=== PATIENT | male | born 1945 | race Caucasian/White ===

== ENCOUNTER 2016-08-18 10:27 | Emergency (ER) | payer MEDICARE, OTHER ==
[~2016-08-18] VITALS: Ht 182.9 cm; Wt 90.0 kg
[~2016-08-18 10:27] MED LIST: DOCU50SY2 PO; LEVA750T PO; LEVO50TA4 PO; METR-1 PO; OMEP20TA PO; PERC10TA27 PO; PERI8.6T PO; WARF6 PO
[2016-08-18 10:28] VITALS: BP 116/78; PULSE 84; RESP 16; TEMP 98.2; O2SAT 98
[2016-08-18] MEDS ORDERED: LEVO75TA3 PO (10:41)
[2016-08-18] MEDS ORDERED: METO25TA3 PO (10:41)
[2016-08-18] MEDS ORDERED: OMEP40CA2 PO (10:41)
[2016-08-18 10:52] VITALS: O2SAT 95
--- NOTE | 2016-08-18 10:55 | PD ---
HPI Chief Complaint: Pain: Acute or Chronic Time Seen by Provider: 10:38 Travel History International Travel<30 days: No Contact w/Intl Traveler<30days: No Traveled to known affect area: No History of Present Illness HPI This patient was sent from the [place] to rule out DVT. He has history of multiple blood clots. He was on Coumadin for a full year that ended 4 months ago. He is no longer on anticoagulation. He complains of left leg swelling for the last 4 days. No injury. No fever. No alleviating factors. Symptoms severity is moderate. PFSH Past Medical History Cancer: Yes (THROAT) Cardiovascular Problems: No Diabetes: No Endocrine: No Genitourinary: No Hepatitis: No Hiatal Hernia: No Immune Disorder: No Musculoskeletal: Yes (LOWER BACK) Neurologic: No Psychiatric: No Respiratory: No Influenza Vaccination: No ?: Not Past Surgical History Abdominal Surgery: Yes (PEG TUBE) AICD: No Body Medical Devices: RIGHT PORT, G-TUBE Cardiac Surgery: No Ear Surgery: No Endocrine Surgery: No Eye Surgery: No Genitourinary Surgery: No Joint Replacement: No Neurologic Surgery: No Oral Surgery: No Pacemaker: No Thoracic Surgery: Yes (RIGHT SIDE IMPLANTED PORT) Other Surgery: Yes (polyp removed) Social History Alcohol Use: Yes (3-4 drinks a week) Tobacco Use: No Substance Use: No Allergies-Medications (Allergen,Severity, Reaction): Coded Allergies: Bee Sting (Unverified Allergy, Severe, Anaphylaxis, 08/18/16) Reported Meds & Prescriptions Reported Meds & Active Scripts Active Reported Omeprazole 40 Mg Cap 40 Mg PO BID Metoprolol Tartrate 25 Mg Tab 25 Mg PO BID Levothyroxine (Levothyroxine Sodium) 75 Mcg Tab 75 Mcg PO DAILY Review of Systems General / Constitutional: No: Fever Eyes: No: Visual changes HENT: No: Headaches Cardiovascular: Positive: Chest Pain or Discomfort, Edema (the) Respiratory: No: Shortness of Breath Gastrointestinal: No: Abdominal Pain Genitourinary: No: Dysuria Musculoskeletal: Positive: Edema, No: Pain Skin: No Rash Neurologic: No: Weakness Psychiatric: No: Depression Endocrine: No: Polydipsia Hematologic/Lymphatic: No: Easy Bruising Physical Exam Narrative GENERAL: Well-nourished, well-developed patient in no apparent distress. SKIN: Focused skin assessment reveals no rash and nodules. Skin is Warm and dry. HEAD: Atraumatic. Normocephalic. EYES: Pupils equal and round. No scleral icterus. No injection or drainage. ENT: No nasal bleeding or discharge. Mucous membranes pink and moist. NECK: Trachea midline. No JVD. CARDIOVASCULAR: Regular rate and rhythm. No murmur appreciated. RESPIRATORY: No accessory muscle use. Clear to auscultation. Breath sounds equal bilaterally. GASTROINTESTINAL: Abdomen soft, non-tender, nondistended. Hepatic and splenic margins not palpable. MUSCULOSKELETAL: No obvious deformities. No clubbing. No cyanosis. Has some swelling of the left leg from the calf down and not on the right side. Readily reproducible chest wall tenderness at the bottom of the right rib cage in the midaxillary line and anterior axillary line NEUROLOGICAL: Awake and alert. No obvious cranial nerve deficits. Motor grossly within normal limits. Normal speech. PSYCHIATRIC: Appropriate mood and affect; insight and judgment normal. Data Data Last Documented VS Vital Signs Date Time Temp Pulse Resp B/P Pulse Ox O2 Delivery O2 Flow Rate FiO2 08/18/16 10:52 95 Room Air 08/18/16 10:28 98.2 84 16 116/78 Orders Electrocardiogram (08/18/16 10:48) Basic Metabolic Panel (Bmp) (08/18/16 10:48) Complete Blood Count With Diff (08/18/16 10:48) Prothrombin Time / Inr (Pt) (08/18/16 10:48) Act Partial Throm Time (Ptt) (08/18/16 10:48) Ecg Monitoring (08/18/16 10:48) Iv Access Insert/Monitor (08/18/16 10:48) Oximetry (08/18/16 10:48) Sodium Chloride 0.9% Flush (Ns Flush) (08/18/16 11:00) Us Leg Venous Doppler (08/18/16 ) Labs Laboratory Tests Test 08/18/16 11:00 White Blood Count 5.5 TH/MM3 Red Blood Count 4.48 MIL/MM3 Hemoglobin 15.4 GM/DL Hematocrit 43.7 % Mean Corpuscular Volume 97.5 FL Mean Corpuscular Hemoglobin 34.4 PG Mean Corpuscular Hemoglobin 35.3 % Concent Red Cell Distribution Width 14.3 % Platelet Count 205 TH/MM3 Mean Platelet Volume 7.9 FL Neutrophils (%) (Auto) 70.2 % Lymphocytes (%) (Auto) 11.8 % Monocytes (%) (Auto) 15.8 % Eosinophils (%) (Auto) 1.7 % Basophils (%) (Auto) 0.5 % Neutrophils # (Auto) 3.9 TH/MM3 Lymphocytes # (Auto) 0.7 TH/MM3 Monocytes # (Auto) 0.9 TH/MM3 Eosinophils # (Auto) 0.1 TH/MM3 Basophils # (Auto) 0.0 TH/MM3 CBC Comment DIFF FINAL Differential Comment Prothrombin Time 10.4 SEC Prothromb Time International 0.9 RATIO Ratio Activated Partial 27.6 SEC Thromboplast Time Sodium Level 131 MEQ/L Potassium Level 4.1 MEQ/L Chloride Level 96 MEQ/L Carbon Dioxide Level 26.3 MEQ/L Anion Gap 9 MEQ/L Blood Urea Nitrogen 13 MG/DL Creatinine 1.02 MG/DL Estimat Glomerular Filtration 72 ML/MIN Rate Random Glucose 92 MG/DL Calcium Level 8.7 MG/DL MDM Medical Decision Making Medical Screen Exam Complete: Yes Emergency Medical Condition: Yes Medical Record Reviewed: Yes Differential Diagnosis DVT, cellulitis, muscle injury Narrative Course I have reviewed the patient's electronic medical record. [facility] 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 Ultrasound left leg is positive for DVT I reviewed his EKG which shows sinus rhythm without ST elevation Extended cardiac monitoring reveals sinus rhythm without ectopy This right low chest wall discomfort is readily reproducible with palpation and is clearly noncardiac and also not suspicious for PE. He does not require CTA or cardiac workup for that. Patient was on Coumadin for years so is aware of the risks of blood thinners. He does not want to go for frequent lab draws however. I have written him Xarelto 15 mg twice a day to start. He is to call his primary physician and get follow-up next week. Diagnosis Primary Impression: Deep vein thrombosis (DVT) of left lower extremity Qualified Code: I82.432 - Acute deep vein thrombosis (DVT) of popliteal vein of left lower extremity Additional Impression: Musculoskeletal chest pain Additional Instructions: The patient was advised to follow up with their physician and return if they worsen. Med/Other Pt SpecificInfo: Prescription(s) given Scripts Rivaroxaban (Xarelto)15 Mg Tab15 Mg PO Q12HR #20 TAB Ref 0 Prov:Kj Santos MD 08/18/16 Disposition: 01 DISCHARGE HOME Condition: Stable Kj Santos MD Aug 18, 2016 10:55
[2016-08-18] MEDS ORDERED: SODIUM CHLORIDE 0.9% FLUSH 10 ML FLUSH IVF PRN (11:00)
[2016-08-18 11:07] LABS: AUTOMATED NEUTROPHIL # 3.9 TH/MM3 (1.8-7.7); BASOPHIL % 0.5 % (0.0-2.0); EOSINOPHIL # 0.1 TH/MM3 (0-0.4); EOSINOPHIL % 1.7 % (0.0-4.0); HEMATOCRIT 43.7 % (39.0-51.0); HEMO FLAGS DIFF FINAL; LYMPH % 11.8 % (9.0-44.0); LYMPHOCYTE # 0.7 TH/MM3 (1.0-4.8); MEAN CELL VOLUME 97.5 FL (80.0-100.0); MEAN CORPUSCULAR HEMOGLOBIN 34.4 PG (27.0-34.0); MEAN CORPUSCULAR HGB CONC 35.3 % (32.0-36.0); MONO % 15.8 % (0.0-8.0); NEUT % 70.2 % (16.0-70.0); PLATELET COUNT 205 TH/MM3 (150-450); RED BLOOD COUNT 4.48 MIL/MM3 (4.50-5.90); RED CELL DISTRIBUTION WIDTH 14.3 % (11.6-17.2); WHITE BLOOD COUNT 5.5 TH/MM3 (4.0-11.0)
[2016-08-18 11:17] LABS: APTT (PATIENT) 27.6 SEC (24.3-30.1); INTERNATIONAL NORMALIZED RATIO 0.9 RATIO; PROTHROMBIN TIME - PATIENT 10.4 SEC (9.8-11.6)
[2016-08-18 11:34] LABS: BICARBONATE 26.3 MEQ/L (21.0-32.0); POTASSIUM 4.1 MEQ/L (3.5-5.1)
--- NOTE | 2016-08-18 11:55 | RADRPT ---
EXAM DATE/TIME: 08/18/2016 11:10 [facility] COMPARISON: No previous studies available for comparison. INDICATIONS : Left leg swelling. MEDICAL HISTORY : Carcinoma, throat. Lower back pain. Left leg pain. SURGICAL HISTORY : Right sided chest port. PEG tube. Polyp removed. Chemotherapy. Radiation therapy. ENCOUNTER: Initial ACUITY: 3 days PAIN SCORE: 10/10 LOCATION: Left leg. TECHNIQUE: Venous ultrasound of the leg was performed from the inguinal ligament to the proximal calf. Real-moraima e, color Doppler and spectral tracing, compression and augmentation techniques were used. FINDINGS: Venous Doppler is positive for deep venous thrombosis in the proximal femoral vein, posterior tibial vein and peroneal vein. CONCLUSION: Venous Doppler is positive positive for thrombus beginning in mid calf extending into the deep femora l vein above the knee. Ethan Snell MD FACR on August 18, 2016 at 11:49 Board Certified Radiologist. This report was verified electronically.
[2016-08-18] MEDS ORDERED: XARE15TA PO (13:03)
--- NOTE | 2016-08-19 14:52 | EKG ---
Date Performed: 08/18/2016 Time Performed: 10:48:53 PTAGE: 70 years EKG: Sinus rhythm ST DEVIATION AND MODERATE T-WAVE ABNORMALITY, CONSIDER ANTERIOR ISCHEMIA Compared to previous tracin g, the T wave changes anteriorly are new. Clinical correlation is recommended ABNORMAL ECG PREVIOUS TRACING : 05/27/2015 06.30 DOCTOR: Rosalio Jacobsen Interpretating Date/Time 08/19/2016 14:51:47
== END 2016-08-18 13:30 | disposition home or self-care (01) ==
LOC: NEPC 10:27
DX: I82.432 Acute embolism and thrombosis of left popliteal vein (principal); R07.89 Other chest pain; R94.31 Abnormal electrocardiogram [ECG] [EKG]; Z85.89 Personal history of malignant neoplasm of other organs and systems; Z87.39 Personal history of other diseases of the musculoskeletal system and connective tissue
CPT/HCPCS: 80048; 85025; 85610; 85730; 93005; 93971

== ENCOUNTER 2017-07-06 13:17 | Observation (INO) | payer OTHER ==
[~2017-07-06] VITALS: Ht 180.3 cm; Wt 95.4 kg
[~2017-07-06 13:17] MED LIST changes: -DOCU50SY2 PO; -LEVA750T PO; -LEVO50TA4 PO; +LEVO75TA3 PO; +METO25TA3 PO; -METR-1 PO; -OMEP20TA PO; +OMEP40CA2 PO; -PERC10TA27 PO; -PERI8.6T PO; -WARF6 PO; +XARE15TA PO
[2017-07-06 14:01] VITALS: BP 175/104; PULSE 77; RESP 20; TEMP 98.1; O2SAT 96
--- NOTE | 2017-07-06 14:46 | RADRPT ---
EXAM DATE/TIME: 07/06/2017 14:37 [facility] COMPARISON: No previous studies available for comparison. INDICATIONS : Cough and shortness of breath. MEDICAL HISTORY : Hypertension. SURGICAL HISTORY : Port. ENCOUNTER: Initial ACUITY: 2 weeks PAIN SCORE: 0/10 LOCATION: Bilateral chest FINDINGS: [id number] in good position. PA and lateral views of the chest demonstrate the lungs to be symmet rically aerated without evidence of mass, infiltrate or effusion. Mild cardiomegaly. Osseous struct ures are intact. CONCLUSION: Mild cardiomegaly otherwise negative Ethan Snell MD FACR on July 06, 2017 at 14:43 Board Certified Radiologist. This report was verified electronically.
[2017-07-06 16:23] LABS: AUTOMATED NEUTROPHIL # 3.1 TH/MM3 (1.8-7.7); BASOPHIL % 0.5 % (0.0-2.0); EOSINOPHIL % 0.6 % (0.0-4.0); HEMATOCRIT 41.9 % (39.0-51.0); HEMOGLOBIN 14.5 GM/DL (13.0-17.0); LYMPH % 13.2 % (9.0-44.0); LYMPHOCYTE # 0.6 TH/MM3 (1.0-4.8); MEAN CELL VOLUME 94.8 FL (80.0-100.0); MEAN CORPUSCULAR HEMOGLOBIN 32.8 PG (27.0-34.0); MEAN CORPUSCULAR HGB CONC 34.6 % (32.0-36.0); MEAN PLATELET VOLUME 7.2 FL (7.0-11.0); MONO % 11.7 % (0.0-8.0); MONOCYTE # 0.5 TH/MM3 (0-0.9); PLATELET COUNT 184 TH/MM3 (150-450); RED BLOOD COUNT 4.42 MIL/MM3 (4.50-5.90); RED CELL DISTRIBUTION WIDTH 13.2 % (11.6-17.2); WHITE BLOOD COUNT 4.3 TH/MM3 (4.0-11.0)
[2017-07-06 16:33] LABS: BICARBONATE 26.3 MEQ/L (21.0-32.0); CALCIUM 8.9 MG/DL (8.5-10.1); CREATININE 1.07 MG/DL (0.60-1.30); INTERNATIONAL NORMALIZED RATIO 1.9 RATIO
--- NOTE | 2017-07-06 17:15 | PD ---
HPI Chief Complaint: Respiratory Symptoms Time Seen by Provider: 16:54 Travel History International Travel<30 days: No Contact w/Intl Traveler<30days: No Traveled to known affect area: No History of Present Illness HPI 71-year-old male presents to the emergency department for evaluation of coughing up blood. Patient states this occurred 2 weeks ago. He saw an ear nose and throat physician who told him that he had throat irritation from previous throat cancer, radiation therapy. The patient states that it went away and started back up yesterday. Patient states that when he coughs he will get approximately half teaspoonful blood when he coughs. He denies any chest pain. No shortness of breath. No abdominal pain. No nausea, vomiting, diarrhea. No weakness or syncope. No lightheadedness. He is currently on Lovenox injections due to have surgery to get his port removed on Sunday. Patient states he called his ENT physician today who did not return his call. He then follow this primary who referred him to the emergency department. Patient does appear well on exam. Moderate severity. PFSH Past Medical History Cancer: Yes (THROAT) Cardiovascular Problems: No Diabetes: No Endocrine: No Genitourinary: No Hepatitis: No Hiatal Hernia: No Immune Disorder: No Musculoskeletal: Yes (LOWER BACK) Neurologic: No Psychiatric: No Respiratory: No Past Surgical History Abdominal Surgery: Yes (PEG TUBE) AICD: No Body Medical Devices: RIGHT PORT, G-TUBE Cardiac Surgery: No Ear Surgery: No Endocrine Surgery: No Eye Surgery: No Genitourinary Surgery: No Joint Replacement: No Neurologic Surgery: No Oral Surgery: No Pacemaker: No Thoracic Surgery: Yes (RIGHT SIDE IMPLANTED PORT) Other Surgery: Yes (polyp removed) Social History Alcohol Use: Yes (3-4 drinks a week) Tobacco Use: No Substance Use: No Allergies-Medications (Allergen,Severity, Reaction): Coded Allergies: bee venom protein (honey bee) (Unverified Allergy, Severe, Anaphylaxis, ) Reported Meds & Prescriptions Reported Meds & Active Scripts Active Xarelto (Rivaroxaban) 15 Mg Tab 15 Mg PO Q12HR Reported Omeprazole 40 Mg Cap 40 Mg PO BID Metoprolol Tartrate 25 Mg Tab 25 Mg PO BID Levothyroxine (Levothyroxine Sodium) 75 Mcg Tab 75 Mcg PO DAILY Review of Systems Except as stated in HPI: all other systems reviewed are Neg Physical Exam Narrative GENERAL: Well-nourished, well-developed male patient, afebrile. Patient is ambulatory with a steady gait. SKIN: Focused skin assessment warm/dry. HEAD: Normocephalic. Atraumatic ENT: Mucosa pink and moist. No erythema or exudates. No uvular edema. No uvular , palatal, or tonsillar deviation. Airway patent. Nasal turbinates appear normal without nasal blood, purulent drainage or septal hematoma. Bilateral tympanic membranes clear without erythema or perforation. EYES: No scleral icterus. No injection or drainage. NECK: Supple, trachea midline. No JVD or lymphadenopathy. CARDIOVASCULAR: Regular rate and rhythm without murmurs, gallops, or rubs. Bilateral radial and pedal pulses are 2+. RESPIRATORY: Breath sounds equal bilaterally. No accessory muscle use. Lung sounds are clear to auscultation peer GASTROINTESTINAL: Abdomen soft, non-tender, nondistended. MUSCULOSKELETAL: No cyanosis, or edema. BACK: Nontender without obvious deformity. No CVA tenderness. Data Data Last Documented VS Vital Signs Date Time Temp Pulse Resp B/P (MAP) Pulse Ox O2 Delivery O2 Flow Rate FiO2 07/06/17 14:01 98.1 77 20 175/104 (127) 96 Orders Orders Complete Blood Count With Diff (07/06/17 14:03) Basic Metabolic Panel (Bmp) (07/06/17 14:03) Act Partial Throm Time (Ptt) (07/06/17 14:03) Prothrombin Time / Inr (Pt) (07/06/17 14:03) Chest, Pa & Lat (07/06/17 ) Electrocardiogram (07/06/17 ) Labs Laboratory Tests Test 07/06/17 15:42 White Blood Count 4.3 TH/MM3 Red Blood Count 4.42 MIL/MM3 Hemoglobin 14.5 GM/DL Hematocrit 41.9 % Mean Corpuscular Volume 94.8 FL Mean Corpuscular Hemoglobin 32.8 PG Mean Corpuscular Hemoglobin Concent 34.6 % Red Cell Distribution Width 13.2 % Platelet Count 184 TH/MM3 Mean Platelet Volume 7.2 FL Neutrophils (%) (Auto) 74.0 % Lymphocytes (%) (Auto) 13.2 % Monocytes (%) (Auto) 11.7 % Eosinophils (%) (Auto) 0.6 % Basophils (%) (Auto) 0.5 % Neutrophils # (Auto) 3.1 TH/MM3 Lymphocytes # (Auto) 0.6 TH/MM3 Monocytes # (Auto) 0.5 TH/MM3 Eosinophils # (Auto) 0.0 TH/MM3 Basophils # (Auto) 0.0 TH/MM3 CBC Comment DIFF FINAL Differential Comment Prothrombin Time 19.0 SEC Prothromb Time International Ratio 1.9 RATIO Activated Partial Thromboplast Time 41.7 SEC Blood Urea Nitrogen 9 MG/DL Creatinine 1.07 MG/DL Random Glucose 94 MG/DL Calcium Level 8.9 MG/DL Sodium Level 131 MEQ/L Potassium Level 3.9 MEQ/L Chloride Level 95 MEQ/L Carbon Dioxide Level 26.3 MEQ/L Anion Gap 10 MEQ/L Estimat Glomerular Filtration Rate 68 ML/MIN MDM Medical Decision Making Medical Screen Exam Complete: Yes Emergency Medical Condition: Yes Medical Record Reviewed: Yes Differential Diagnosis Anemia versus throat irritation versus medical clearance Narrative Course 71-year-old male presents to the emergency department for evaluation of blood when he coughs. He recently saw an ENT physician for this and was told that it was due to his throat being irritated from previous radiation therapy. Patient appears well on exam. He denies any other symptoms or complaints. EKG shows sinus rhythm, heart rate 75, no acute ST changes. CBC shows no acute abnormality with a hemoglobin of 14.5, hematocrit 41.9. BMP shows no acute abnormality. Patient is slightly hyponatremic with a sodium of 131. Coags showed no acute abnormality. I discussed the results with the patient in my attending physician, Dr. Myles. Patient states that he does not feel comfortable going home as he had significant amount of bleeding last night. He is concerned that he may have too much bleeding. Patient will be admitted for observation. [facility] is paged for admission. Dr. Foreman accepted admission. Diagnosis Primary Impression: Hemoptysis Admitting Information Admitting Physician Requests: Observation Lalita Farr Jul 06, 2017 17:15
[2017-07-06 17:47] VITALS: BP 162/94; PULSE 78; RESP 18; O2SAT 96
[2017-07-06] MEDS ORDERED: ENOX40P SQ (17:54)
[2017-07-06] MEDS ORDERED: FOLI400T PO (17:55)
[2017-07-06] MEDS ORDERED: LACTULOSE SYRUP 20 GM/30 ML CUP PO PRN (18:00)
[2017-07-06] MEDS ORDERED: BISACODYL 10 MG SUPP RECTAL PRN (18:00)
[2017-07-06] MEDS ORDERED: SENNOSIDES 8.6 MG TAB PO PRN (18:00)
[2017-07-06] MEDS ORDERED: MAGNESIUM HYDROXIDE SUSP 30 ML CUP PO PRN (18:00)
[2017-07-06] MEDS ORDERED: NALOXONE HCL 0.4 MG/ML AMP IV PUSH PRN (18:00)
[2017-07-06] MEDS ORDERED: ONDANSETRON HCL 4 MG/2 ML VIAL IVP PRN (18:00)
[2017-07-06] MEDS ORDERED: SODIUM CHLORIDE 0.9% FLUSH 10 ML FLUSH IV FLUSH PRN (18:00)
[2017-07-06 20:09] VITALS: BP 158/76; PULSE 95; RESP 18; TEMP 98.4; O2SAT 95
[2017-07-06 20:23] LABS: HEMOGLOBIN 14.2 GM/DL (13.0-17.0)
[2017-07-06] MEDS: SODIUM CHLORIDE 0.9% FLUSH 10 ML FLUSH IV FLUSH SCH (21:00)
[2017-07-06] MEDS: DOCUSATE SODIUM 50 MG/SENNA 8.6 MG TAB PO SCH (21:00)
[2017-07-06] MEDS: METOPROLOL TARTRATE 25 MG TAB PO SCH (21:00)
[2017-07-06] MEDS: PANTOPRAZOLE SOD 40 MG DELAYED RELEASE TAB PO SCH (21:00)
[2017-07-06] MEDS ORDERED: ZOLPIDEM TARTRATE 5 MG TAB PO ONE (21:45)
--- NOTE | 2017-07-06 22:00 | HHI.HP ---
HPI Service [facility] Primary Care Physician [facility] Admission Diagnosis Hemoptysis on Lovenox Diagnoses: (1) Hemoptysis (2) Deep vein thrombosis (DVT) of left lower extremity Chief Complaint: Hemoptysis Travel History International Travel<30 Days: No Contact w/Intl Traveler <30 Da: No Traveled to Known Affected Are: No History of Present Illness Mr. Momin is a 71-year-old male with a history of multiple thromboembolisms and stage IV throat cancer in remission following radiation and chemotherapy who presented to the emergency room on 07/06/2017 complaining of a significant amount of hemoptysis. The patient is admitted to [facility] for medical management and observation. The patient is seen in the CDU. He reports that he has been in a state of good health up until about 2 weeks ago when he experienced some hemoptysis. He went to see an ENT the next day who performed a laryngoscopy and told him that he had some tissue irritation likely from radiation and this was the suspected source of bleeding and should resolve spontaneously. He also told him that if it reoccurred, he would likely need a biopsy of the irritated area. The hemoptysis went away until 07/05/2017 -and the patient reports a large and frightening amount of hemoptysis occurred in the nighttime. His primary care physician recommended he come to the hospital this morning. The patient is scheduled to have his right vascular chest port removed on Sunday , so he has been taken off Coumadin (which he takes for a history of mesenteric vein thrombosis, portal vein thrombosis, and left lower extremity DVT) and has been on Lovenox 40 mg subq twice daily since 07/03 in preparation of port removal. Of note, his INR in ER was 1.9. The patient is also complaining of 2 weeks of left lower extremity swelling -he reports this has been intermittent but seems to be present today during my visit. 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 Past Surgical History Right chest port insertion Open colon polypectomy PEG tube insertion and removal Reported Medications Reported Meds & Active Scripts Active Reported Folic Acid 0.4 Mg Tab 400 Mcg PO DAILY Lovenox Inj (Enoxaparin Sodium) 40 Mg/0.4 Ml Syr 40 Mg SQ BID Omeprazole 40 Mg Cap 40 Mg PO BID Metoprolol Tartrate 25 Mg Tab 25 Mg PO BID Levothyroxine (Levothyroxine Sodium) 75 Mcg Tab 75 Mcg PO DAILY . Allergies: Coded Allergies: bee venom protein (honey bee) (Unverified Allergy, Severe, Anaphylaxis, ) Family History Father from gastric ulcer in his 80s Mother is alive at age 92 and is of breast cancer survivor . Social History Tobacco: Smoked 2 packs per day for about 40 years and quit 9 years ago Alcohol: Drinks a couple of drinks a day -usually beer -denies any history of alcohol withdrawal or DTs or seizures Illicit Drugs: Denies . Physical Exam Vital Signs Vital Signs Date Time Temp Pulse Resp B/P (MAP) Pulse Ox O2 Delivery O2 Flow Rate FiO2 07/06/17 20:09 98.4 95 18 158/76 (103) 95 07/06/17 18:46 07/06/17 17:47 78 18 162/94 (116) 96 Room Air 07/06/17 14:01 98.1 77 20 175/104 (127) 96 Physical Exam GENERAL: This is a well-nourished, well-developed patient, in no apparent distress. SKIN: No rashes. Cool and dry. HEAD: Atraumatic. Normocephalic. EYES: No scleral icterus. No injection or drainage. ENT: Nose without bleeding, purulent drainage. Oropharynx with area of red inflammation on the posterior right side. Limited exam. Vocal quality is somewhat hoarse. NECK: Trachea midline. No JVD. CARDIOVASCULAR: Regular rate and rhythm without murmurs, gallops, or rubs. Left lower extremity slightly larger than the right. +2 peripheral pulses. RESPIRATORY: Clear to auscultation. Breath sounds equal bilaterally. No wheezes , rales, or rhonchi. GASTROINTESTINAL: Abdomen soft, non-tender, nondistended. No guarding. MUSCULOSKELETAL: Extremities without clubbing, cyanosis, or edema. No calf tenderness. NEUROLOGICAL: Awake and alert. Motor and sensory grossly within normal limits. Normal speech. . Laboratory Laboratory Tests Test 07/06/17 15:42 07/06/17 19:13 White Blood Count 4.3 Red Blood Count 4.42 Hemoglobin 14.5 14.2 Hematocrit 41.9 40.0 Mean Corpuscular Volume 94.8 Mean Corpuscular Hemoglobin 32.8 Mean Corpuscular Hemoglobin Concent 34.6 Red Cell Distribution Width 13.2 Platelet Count 184 Mean Platelet Volume 7.2 Neutrophils (%) (Auto) 74.0 Lymphocytes (%) (Auto) 13.2 Monocytes (%) (Auto) 11.7 Eosinophils (%) (Auto) 0.6 Basophils (%) (Auto) 0.5 Neutrophils # (Auto) 3.1 Lymphocytes # (Auto) 0.6 Monocytes # (Auto) 0.5 Eosinophils # (Auto) 0.0 Basophils # (Auto) 0.0 CBC Comment DIFF FINAL Differential Comment Prothrombin Time 19.0 Prothromb Time International Ratio 1.9 Activated Partial Thromboplast Time 41.7 Blood Urea Nitrogen 9 Creatinine 1.07 Random Glucose 94 Calcium Level 8.9 Sodium Level 131 Potassium Level 3.9 Chloride Level 95 Carbon Dioxide Level 26.3 Anion Gap 10 Estimat Glomerular Filtration Rate 68 Result Diagram: 07/06/17 1913 07/06/17 1542 Imaging Last Impressions Lower Extremity Ultrasound 07/06/17 0000 Signed Impressions: Service Date/Time: Thursday, July 06, 2017 22:30 - CONCLUSION: Deep venous thrombosis likely a combination of acute on chronic given its sonographic appearance when compared to the prior study. Luis Chandler Jr., MD Chest X-Ray 07/06/17 0000 Signed Impressions: Service Date/Time: Thursday, July 06, 2017 14:37 - CONCLUSION: Mild cardiomegaly otherwise negative Ethan Snell MD FACR . Caprini VTE Risk Assessment Caprini VTE Risk Assessment: Mod/High Risk (score >= 2) Caprini Risk Assessment Model Point Value = 1 Point Value = 2 Point Value = 3 Point Value = 5 Age 41-60 Minor surgery BMI > 25 kg/m2 Swollen legs Varicose veins or History of unexplained or recurrent spontaneous Oral contraceptives or hormone replacement Sepsis (< 1 month) Serious lung disease, including pneumonia (< 1 month) Abnormal pulmonary function Acute myocardial infarction Congestive heart failure (< 1 month) History of inflammatory bowel disease Medical patient at bed rest Age 61-74 Arthroscopic surgery Major open surgery (> 45 min) Laparoscopic surgery (> 45 min) Malignancy Confined to bed (> 72 hours) Immobilizing plaster cast Central venous access Age >= 75 History of VTE Family history of VTE Factor V Leiden Prothrombin [id number] Lupus anticoagulant Anticardiolipin antibodies Elevated serum homocysteine Heparin-induced thrombocytopenia Other congenital or acquired thrombophilia Stroke (< 1 month) Elective arthroplasty Hip, pelvis, or leg fracture Acute spinal cord injury (< 1 month) Prophylaxis Regimen Total Risk Factor Score Risk Level Prophylaxis Regimen 0-1 Low Early ambulation 2 Moderate Order ONE of the following: *Sequential Compression Device (SCD) *Heparin 5000 units SQ BID 3-4 Higher Order ONE of the following medications: *Heparin 5000 units SQ TID *Enoxaparin/Lovenox 40 mg SQ daily (WT < 150 kg, CrCl > 30 mL/min) *Enoxaparin/Lovenox 30 mg SQ daily (WT < 150 kg, CrCl > 10-29 mL/min) *Enoxaparin/Lovenox 30 mg SQ BID (WT < 150 kg, CrCl > 30 mL/min) AND/OR *Sequential Compression Device (SCD) 5 or more Highest Order ONE of the following medications: *Heparin 5000 units SQ TID (Preferred with Epidurals) *Enoxaparin/Lovenox 40 mg SQ daily (WT < 150 kg, CrCl > 30 mL/min) *Enoxaparin/Lovenox 30 mg SQ daily (WT < 150 kg, CrCl > 10-29 mL/min) *Enoxaparin/Lovenox 30 mg SQ BID (WT < 150 kg, CrCl > 30 mL/min) AND *Sequential Compression Device (SCD) Assessment and Plan Problem List: (1) Hemoptysis ICD Code: R04.2 - Hemoptysis Status: Acute (2) Deep vein thrombosis (DVT) of left lower extremity ICD Code: I82.402 - Acute embolism and thrombosis of unspecified deep veins of left lower extremity Status: Acute Assessment and Plan Mr. Momin is a 71-year-old male with a history of multiple thromboembolisms and stage IV throat cancer in remission following radiation and chemotherapy who presented to the emergency room on 07/06/2017 complaining of a significant amount of hemoptysis. The patient is admitted to [facility] for medical management and observation. Hemoptysis -Chest x-ray is personally reviewed shows mild cardiomegaly and is negative for acute cardiopulmonary process -Consult ENT -appreciate assistance -Diet NPO except medications -Lovenox held -We will trend hemoglobin and hematocrit every 8 hours -hemoglobin started at 14.5 and was 14.2 on second reading; hematocrit started at 41.9 was 40 on the second reading. -We will transfuse if necessary Acute on chronic left lower extremity DVT History of mesenteric thrombosis and portal vein thrombosis -Patient indicated that he thought his DVT had resolved -Left lower extremity ultrasound was ordered and resulted as consistent with acute on chronic left lower extremity DVT when compared to prior ultrasound -Heparin drip started -Consider hematology consultation for assistance with anticoagulation recommendations Hypothyroidism and hypertension -Resume home levothyroxine and metoprolol Gastroesophageal reflux disease -Resume home PPI Discussed Condition With Patient, RN, and Dr. Nunze . Cynthia Portillo Jul 06, 2017 22:00
--- NOTE | 2017-07-06 23:00 | RADRPT ---
EXAM DATE/TIME: 07/06/2017 22:30 [facility] COMPARISON: US LEG LEFT VENOUS DOPPLER, August 18, 2016, 11:10. INDICATIONS : Left leg swelling. MEDICAL HISTORY : Hypertension. Hypothyroidism. Throat cancer. Chemotherapy. Radiation therapy. SURGICAL HISTORY : PEG tube placement and removal. Right chest port. Polyp removal. ENCOUNTER: Subsequent ACUITY: 1 day PAIN SCORE: 2/10 LOCATION: Left leg. TECHNIQUE: Venous ultrasound of the leg was performed from the inguinal ligament to the proximal calf. Real-moraima e, color Doppler and spectral tracing, compression and augmentation techniques were used. FINDINGS: Echogenic noncompressible material is seen extending from the posterior tibial vein through the below -knee popliteal vein into the distal superficial femoral vein. Nonocclusive. The appearance is less p ronounced from the prior study. No examination showing clearance of the previously seen thrombus. CONCLUSION: Deep venous thrombosis likely a combination of acute on chronic given its sonographic appearance when compared to the prior study. Luis Chandler Jr., MD on July 06, 2017 at 22:55 Board Certified Radiologist. This report was verified electronically.
[2017-07-06 23:18] VITALS: BP 139/95; PULSE 77; RESP 18; TEMP 98.4; O2SAT 94
[2017-07-06] MEDS ORDERED: HEPARIN-D5W 25,000 U/250 ML 250 ML IV PRN (23:30)
[2017-07-07] MEDS ORDERED: HEPARIN 25,000 UNITS-D5W 250 ML - PREMIX IV PRN (00:30)
[2017-07-07 00:31] LABS: AUTOMATED NEUTROPHIL # 2.3 TH/MM3 (1.8-7.7); BASOPHIL % 0.8 % (0.0-2.0); EOSINOPHIL % 0.8 % (0.0-4.0); HEMATOCRIT 39.1 % (39.0-51.0); HEMOGLOBIN 13.5 GM/DL (13.0-17.0); LYMPH % 18.2 % (9.0-44.0); LYMPHOCYTE # 0.6 TH/MM3 (1.0-4.8); MEAN CELL VOLUME 95.2 FL (80.0-100.0); MEAN CORPUSCULAR HGB CONC 34.6 % (32.0-36.0); MEAN PLATELET VOLUME 7.4 FL (7.0-11.0); MONOCYTE # 0.5 TH/MM3 (0-0.9); NEUT % 66.2 % (16.0-70.0); PLATELET COUNT 162 TH/MM3 (150-450); RED BLOOD COUNT 4.11 MIL/MM3 (4.50-5.90); RED CELL DISTRIBUTION WIDTH 13.7 % (11.6-17.2); WHITE BLOOD COUNT 3.4 TH/MM3 (4.0-11.0)
[2017-07-07 00:39] LABS: INTERNATIONAL NORMALIZED RATIO 1.6 RATIO; PROTHROMBIN TIME - PATIENT 16.5 SEC (9.8-11.6)
[2017-07-07 05:00] VITALS: BP 142/92; PULSE 78; RESP 18; TEMP 98.2; O2SAT 96
[2017-07-07 08:00] VITALS: BP 148/93; PULSE 70; RESP 17; TEMP 97.9; O2SAT 92
--- NOTE | 2017-07-07 08:15 | HHI.PR ---
Subjective Remarks in no acute distress. resting comfortably. had slight hemoptysis last night. Objective Vitals Vital Signs Date Time Temp Pulse Resp B/P (MAP) Pulse Ox O2 Delivery O2 Flow Rate FiO2 07/07/17 05:00 98.2 78 18 142/92 (109) 96 07/06/17 23:18 98.4 77 18 139/95 (110) 94 07/06/17 20:09 98.4 95 18 158/76 (103) 95 07/06/17 18:46 07/06/17 17:47 78 18 162/94 (116) 96 Room Air 07/06/17 14:01 98.1 77 20 175/104 (127) 96 I/O 07/06/17 07/06/17 07/06/17 07/07/17 07/07/17 07/07/17 07:00 15:00 23:00 07:00 15:00 23:00 Intake Total 30 ml Balance 30 ml Intake Oral 30 ml # Voids 2 Result Diagram: 07/07/17 0004 07/06/17 1542 Imaging Last Impressions Lower Extremity Ultrasound 07/06/17 0000 Signed Impressions: Service Date/Time: Thursday, July 06, 2017 22:30 - CONCLUSION: Deep venous thrombosis likely a combination of acute on chronic given its sonographic appearance when compared to the prior study. Luis Chandler Jr., MD Chest X-Ray 07/06/17 0000 Signed Impressions: Service Date/Time: Thursday, July 06, 2017 14:37 - CONCLUSION: Mild cardiomegaly otherwise negative Ethan Snell MD FACR Objective Remarks GENERAL: This is a well-nourished, well-developed patient, in no apparent distress. CARDIOVASCULAR: Regular rate and regular rhythm without murmurs, gallops, or rubs. RESPIRATORY: Clear to auscultation. Breath sounds equal bilaterally. No wheezes , rales, or rhonchi. GASTROINTESTINAL: Abdomen soft, non-tender, nondistended. Normal, active bowel sounds MUSCULOSKELETAL: Extremities without clubbing, cyanosis, or edema. NEURO: Alert & Oriented x4 to person, place, time, situation. Moves all ext x4 Medications and IVs Inpatient Medications Bisacodyl (Dulcolax Supp) 10 mg DAILY PRN RECTAL SEVERE CONSITIPATION; Start at 18:00 Folic Acid (Folate) 1 mg DAILY PO ; Start 07/07/17 at 09:00 Heparin Sodium/ Dextrose 250 ml @ 17 mls/hr TITRATE PRN IV Coagulation Management Last administered on 07/07/17at 00:57; Start 07/07/17 at 00:30 Lactulose (Lactulose Liq) 30 ml DAILY PRN PO SEVERE CONSITIPATION; Start at 18:00 Levothyroxine Sodium (Synthroid) 75 mcg DAILY PO ; Start 07/07/17 at 09:00 Magnesium Hydroxide (Milk Of Magnesia Liq) 30 ml Q12H PRN PO Mild constipation ; Start 07/06/17 at 18:00 Metoprolol Tartrate (Lopressor) 25 mg BID PO Last administered on 07/06/17at 21: 00; Start 07/06/17 at 21:00 Naloxone HCl (Narcan Inj) 0.4 mg UNSCH PRN IV PUSH SEE LABEL COMMENTS; Start at 18:00 Ondansetron HCl (Zofran Inj) 4 mg Q6H PRN IVP NAUSEA OR VOMITING; Start at 18:00 Pantoprazole Sodium (Protonix) 40 mg BID PO Last administered on 07/06/17at 21: 00; Start 07/06/17 at 21:00 Senna/Docusate Sodium (Lupe-Colace) 1 tab BID PO Last administered on at 21:00; Start 07/06/17 at 21:00 Sennosides (Senokot) 17.2 mg Q12H PRN PO Moderate constipation; Start 07/06/17 at 18:00 Sodium Chloride (NS Flush) 2 ml BID IV FLUSH Last administered on 07/06/17at 21: 00; Start 07/06/17 at 21:00 Zolpidem Tartrate (Ambien) 5 mg ONCE ONCE PO Last administered on 07/06/17at 22 :00; Start 07/06/17 at 21:45; Stop 07/06/17 at 21:46; Status DC A/P Problem List: (1) Hemoptysis ICD Code: R04.2 - Hemoptysis Status: Acute (2) Deep vein thrombosis (DVT) of left lower extremity ICD Code: I82.402 - Acute embolism and thrombosis of unspecified deep veins of left lower extremity Status: Acute Assessment and Plan Hemoptysis -Chest x-ray is personally reviewed shows mild cardiomegaly and is negative for acute cardiopulmonary process -Consulted ENT -appreciate assistance -Diet NPO except medications -Lovenox held -We will trend hemoglobin and hematocrit every 8 hours - -We will transfuse if necessary Acute on chronic left lower extremity DVT History of mesenteric thrombosis and portal vein thrombosis -Patient indicated that he thought his DVT had resolved -Left lower extremity ultrasound was ordered and resulted as consistent with acute on chronic left lower extremity DVT when compared to prior ultrasound -Heparin drip started -will consult Hematology Hypothyroidism and hypertension -Resume home levothyroxine and metoprolol Gastroesophageal reflux disease -Resume home PPI Manuel Ying MD Jul 07, 2017 08:15
[2017-07-07] MEDS: DOCUSATE SODIUM 50 MG/SENNA 8.6 MG TAB PO SCH ×2 (09:00→20:57)
[2017-07-07] MEDS: FOLIC ACID 1 MG TAB PO SCH (09:20)
[2017-07-07] MEDS: PANTOPRAZOLE SOD 40 MG DELAYED RELEASE TAB PO SCH ×2 (09:20→20:57)
[2017-07-07] MEDS: LEVOTHYROXINE SODIUM 75 MCG TAB PO SCH (09:20)
[2017-07-07] MEDS: SODIUM CHLORIDE 0.9% FLUSH 10 ML FLUSH IV FLUSH SCH ×2 (09:21→21:00)
[2017-07-07] MEDS: METOPROLOL TARTRATE 25 MG TAB PO SCH ×2 (09:21→20:57)
--- NOTE | 2017-07-07 09:50 | PD.CONS ---
History of Present Illness Service ENT Consult Requested By ED Reason for Consult Hemoptysis Primary Care Physician [facility] Diagnoses: History of Present Illness 71 year old male. 5 years post chemo and radiation therapy for unknown primary head and neck cancer. 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 Has been anticoagulated due to multiple thromboembolisms. Had an episode of hemoptysis [address] Dillon at the [facility] ([facility]) who saw no lesion. Was reassure and does have a follow up re-check on 08/02. Had a significant episode of hemoptysis yesterday. Could not get to [facility] and was told by primary care to come here. Labs are stable and no other episode. He has been on Lovenox in preparation for port removal Sunday at [facility] in [place]. He is on heparin now. Review of Systems Ears, nose, mouth, throat: COMPLAINS OF: Hoarseness, DENIES: Nasal discharge, Oral lesions, Throat pain, Ear Pain, Epistaxis, Odynophagia Past Family Social History Allergies: Coded Allergies: bee venom protein (honey bee) (Unverified Allergy, Severe, Anaphylaxis, ) Physical Exam Vital Signs Vital Signs Date Time Temp Pulse Resp B/P (MAP) Pulse Ox O2 Delivery O2 Flow Rate FiO2 07/07/17 08:00 97.9 70 17 148/93 (111) 92 07/07/17 05:00 98.2 78 18 142/92 (109) 96 07/06/17 23:18 98.4 77 18 139/95 (110) 94 07/06/17 20:09 98.4 95 18 158/76 (103) 95 07/06/17 18:46 07/06/17 17:47 78 18 162/94 (116) 96 Room Air 07/06/17 14:01 98.1 77 20 175/104 (127) 96 Physical Exam GENERAL: This is a well-nourished, well-developed patient, in no apparent distress. SKIN: No rashes, ecchymoses or lesions. Cool and dry. HEAD: Atraumatic. Normocephalic. No temporal or scalp tenderness. EYES: Pupils equal round and reactive. Extraocular motions intact. No scleral icterus. No injection or drainage. ENT: Nose without bleeding, purulent drainage or septal hematoma. Throat without erythema, tonsillar hypertrophy or exudate. Uvula midline. Airway patent. NECK: Trachea midline. No JVD or lymphadenopathy. Supple, nontender, no meningeal signs. NEUROLOGICAL: Awake and alert. Normal speech. Fiberoptic laryngoscopy: no bleed seen, no lesion. mild post radiation edema. Laboratory Laboratory Tests Test 07/06/17 15:42 07/06/17 19:13 07/07/17 00:04 07/07/17 06:15 White Blood Count 4.3 3.4 Red Blood Count 4.42 4.11 Hemoglobin 14.5 14.2 13.5 Hematocrit 41.9 40.0 39.1 Mean Corpuscular Volume 94.8 95.2 Mean Corpuscular Hemoglobin 32.8 33.0 Mean Corpuscular Hemoglobin Concent 34.6 34.6 Red Cell Distribution Width 13.2 13.7 Platelet Count 184 162 Mean Platelet Volume 7.2 7.4 Neutrophils (%) (Auto) 74.0 66.2 Lymphocytes (%) (Auto) 13.2 18.2 Monocytes (%) (Auto) 11.7 14.0 Eosinophils (%) (Auto) 0.6 0.8 Basophils (%) (Auto) 0.5 0.8 Neutrophils # (Auto) 3.1 2.3 Lymphocytes # (Auto) 0.6 0.6 Monocytes # (Auto) 0.5 0.5 Eosinophils # (Auto) 0.0 0.0 Basophils # (Auto) 0.0 0.0 CBC Comment DIFF FINAL DIFF FINAL Differential Comment Prothrombin Time 19.0 16.5 Prothromb Time International Ratio 1.9 1.6 Activated Partial Thromboplast Time 41.7 35.5 32.9 Blood Urea Nitrogen 9 Creatinine 1.07 Random Glucose 94 Calcium Level 8.9 Sodium Level 131 Potassium Level 3.9 Chloride Level 95 Carbon Dioxide Level 26.3 Anion Gap 10 Estimat Glomerular Filtration Rate 68 Result Diagram: 07/07/17 0004 07/06/17 1547 Imaging reviewed cxr Assessment and Plan Assessment and Plan Hemoptysis, hoarseness (residential post radiation) No lesion seen, no active bleed. Patient is set for his port removal and can proceed. Need to get him back on schedule for his Lovenox. Does not need a neck CT at this time, but it is important that he keep his follow up with Dr Dillon on 08/02 to re-chack and be sure a small lesion is not growing. OK to feed and D/C per ENT. [facility]. Phi Chaparro MD Jul 07, 2017 09:50
--- NOTE | 2017-07-07 11:26 | PD.CONS ---
History of Present Illness Service Hematology/Oncology Consult Requested By The Hospitalist Service Reason for Consult 1. Patient with a remote history of head and neck carcinoma; diagnosed and treated 5 years ago with concurrent chemoradiotherapy. His disease appears to be in remission at this time. 2. Long-term anticoagulation for history of venous thromboembolism. 3. Hemoptysis. Primary Care Physician [facility] Diagnoses: History of Present Illness Chief Complaint: Coughing up blood; on off for the past 3 weeks. History of presenting illness: Patient is a 71-year-old male who was diagnosed 5 years ago with what he describes as a head and neck carcinoma, he reports undergoing treatment with chemotherapy and radiation at [facility] in [place]. His radiation oncologist was Dr. Darwin Petersen and his medical oncologist was Dr. Barrett. He reports receiving 3 doses of chemotherapy with daily radiation treatments; Sunday through Sunday for total of approximately 7 weeks. He tells me he has been in remission ever since and has followed up with an ENT surgeon; Dr. Dillon at the [facility] in [place]. The patient reports having been on anticoagulation with warfarin for several years now for history of blood clots in his legs. About 5 days ago he was advised discontinuation of warfarin and was switched over to therapeutic dose Lovenox in preparation for infusion port removal on 07/09/2017. About 2 weeks ago the patient reports coughing up blood, he reports the volume was significant and he was seen by Dr. Dillon in [place] who performed a flexible laryngoscopy, he was noted to have an area in the oropharynx concerning for radiation related mucositis which was the likely source of bleeding. The patient was recommended conservative management. The symptoms resolved transiently but then recurred 2 nights ago. The patient tells me he spat up "2 or 3 mouthfuls of blood ". He presented to this facility for further workup and management. Since admission his hemoptysis has decreased significantly and has nearly resolved. He was taken off of Lovenox and was transitioned to a heparin infusion. Ultrasound Doppler studies of the left leg performed yesterday indicate an acute on chronic deep venous thrombosis of the left lower extremity. Formerly in 2017 he had a deep venous thrombosis as noted on ultrasound Doppler studies documented in the EMR. Review of Systems Constitutional: COMPLAINS OF: Fatigue, DENIES: Diaphoretic episodes, Fever, Weight gain, Weight loss, Chills, Dizziness, Change in appetite, Night Sweats Endocrine: DENIES: Heat/cold intolerance, Polydipsia, Polyuria, Polyphagia Eyes: DENIES: Blurred vision, Diplopia, Eye inflammation, Eye pain, Vision loss , Photosensitivity, Double Vision Ears, nose, mouth, throat: COMPLAINS OF: Hoarseness, DENIES: Tinnitus, Hearing loss, Vertigo, Nasal discharge, Oral lesions, Throat pain, Ear Pain, Running Nose, Epistaxis, Sinus Pain, Toothache, Odynophagia Respiratory: COMPLAINS OF: Cough, Hemoptysis, Sputum production, DENIES: Apneas , Snoring, Wheezing, Shortness of breath Cardiovascular: DENIES: Chest pain, Palpitations, Syncope, Dyspnea on Exertion , PND, Lower Extremity Edema, Orthopnea, Claudication Gastrointestinal: COMPLAINS OF: Difficulty Swallowing, DENIES: Abdominal pain, Black stools, Bloody stools, Constipation, Diarrhea, Nausea, Vomiting, Anorexia Genitourinary: DENIES: Sexual dysfunction, Urinary frequency, Urinary incontinence, Urgency, Hematuria, Dysuria, Nocturia, Penile Discharge, Testicular Pain, Testicular Swelling Musculoskeletal: DENIES: Joint pain, Muscle aches, Stiffness, Joint Swelling, Back pain, Neck pain Integumentary: DENIES: Abnormal pigmentation, Nail changes, Pruritus, Rash Hematologic/lymphatic: COMPLAINS OF: Bruising (At the injection sites from Lovenox), DENIES: Lymphadenopathy Immunologic/allergic: DENIES: Eczema, Urticaria Neurologic: DENIES: Abnormal gait, Headache, Localized weakness, Paresthesias, Seizures, Speech Problems, Tremor, Poor Balance Psychiatric: DENIES: Anxiety, Confusion, Mood changes, Depression, Hallucinations, Agitation, Suicidal Ideation, Homicidal Ideation, Delusions Except as stated in HPI: all other systems reviewed are Neg Past Family Social History Allergies: Coded Allergies: bee venom protein (honey bee) (Unverified Allergy, Severe, Anaphylaxis, ) Past Medical History 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 Past Surgical History Needle biopsy of neck mass. Colonic polyp resections; surgical. Feeding tube placement Infusion port placement Active Ordered Medications Heparin infusion per protocol. Senna Colace 1 tablet p.o. twice daily Folic acid 1 mg p.o. daily Levothyroxine 75 mcg p.o. daily Magnesium hydroxide 30 mL's p.o. every 12 hours needed for constipation Metoprolol 25 mg p.o. twice daily Zofran 4 mg IV every 6 hours needed for nausea and vomiting Pantoprazole 40 mg p.o. twice daily Ambien 5 mill grams p.o. nightly as needed for insomnia. Senokot 17.2 mg p.o. every 12 hours needed for moderate constipation. Family History Mother is living, she is 92 years old. She had a history of breast cancer. Father is he in his 70s. Social History Patient is originally from [facility]. 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 He is a of the [employer] he did not served active duty overseas. He currently lives at home with his elderly . The patient has 2 adult children; both daughters. He reports smoking 2 packs a day for close to 40 years he quit 10 years ago. He denies alcohol abuse. Physical Exam Vital Signs Vital Signs Date Time Temp Pulse Resp B/P (MAP) Pulse Ox O2 Delivery O2 Flow Rate FiO2 07/07/17 08:00 97.9 70 17 148/93 (111) 92 07/07/17 05:00 98.2 78 18 142/92 (109) 96 07/06/17 23:18 98.4 77 18 139/95 (110) 94 07/06/17 20:09 98.4 95 18 158/76 (103) 95 07/06/17 18:46 07/06/17 17:47 78 18 162/94 (116) 96 Room Air 07/06/17 14:01 98.1 77 20 175/104 (127) 96 Physical Exam GENERAL: Elderly male, medium height moderate build, Has hoarseness of the voice. Appears to be no acute distress. SKIN: No rashes, ecchymoses or lesions. Cool and dry. HEAD: Atraumatic. Normocephalic. No temporal or scalp tenderness. EYES: Pupils equal round and reactive. Extraocular motions intact. No scleral icterus. No injection or drainage. ENT: Nose without bleeding, purulent drainage or septal hematoma. Throat without erythema, tonsillar hypertrophy or exudate. Uvula midline. Airway patent. NECK: Trachea midline. No JVD or lymphadenopathy. Supple, nontender, no meningeal signs. Postradiation changes noted CARDIOVASCULAR: Regular rate and rhythm without murmurs, gallops, or rubs. RESPIRATORY: Clear to auscultation. Breath sounds equal bilaterally. No wheezes , rales, or rhonchi. GASTROINTESTINAL: Protuberant belly, soft nontender nondistended palpable organ enlargement, bruising noted along the sides where he had injected himself with Lovenox. MUSCULOSKELETAL: Extremities without clubbing, cyanosis, or edema. No joint tenderness, effusion, or edema noted. No calf tenderness. Negative Homans sign bilaterally. NEUROLOGICAL: Awake and alert. Cranial nerves II through XII intact. Motor and sensory grossly within normal limits. Five out of 5 muscle strength in all muscle groups. Normal speech. Laboratory Laboratory Tests Test 07/06/17 15:42 07/06/17 19:13 07/07/17 00:04 07/07/17 06:15 White Blood Count 4.3 3.4 Red Blood Count 4.42 4.11 Hemoglobin 14.5 14.2 13.5 Hematocrit 41.9 40.0 39.1 Mean Corpuscular Volume 94.8 95.2 Mean Corpuscular Hemoglobin 32.8 33.0 Mean Corpuscular Hemoglobin Concent 34.6 34.6 Red Cell Distribution Width 13.2 13.7 Platelet Count 184 162 Mean Platelet Volume 7.2 7.4 Neutrophils (%) (Auto) 74.0 66.2 Lymphocytes (%) (Auto) 13.2 18.2 Monocytes (%) (Auto) 11.7 14.0 Eosinophils (%) (Auto) 0.6 0.8 Basophils (%) (Auto) 0.5 0.8 Neutrophils # (Auto) 3.1 2.3 Lymphocytes # (Auto) 0.6 0.6 Monocytes # (Auto) 0.5 0.5 Eosinophils # (Auto) 0.0 0.0 Basophils # (Auto) 0.0 0.0 CBC Comment DIFF FINAL DIFF FINAL Differential Comment Prothrombin Time 19.0 16.5 Prothromb Time International Ratio 1.9 1.6 Activated Partial Thromboplast Time 41.7 35.5 32.9 Blood Urea Nitrogen 9 Creatinine 1.07 Random Glucose 94 Calcium Level 8.9 Sodium Level 131 Potassium Level 3.9 Chloride Level 95 Carbon Dioxide Level 26.3 Anion Gap 10 Estimat Glomerular Filtration Rate 68 Result Diagram: 07/07/17 0004 07/06/17 1542 Imaging Ultrasound Doppler studies of the left lower extremity dated 07/06/2017: Conclusion: Deep venous thrombosis likely combination of acute and chronic given its sonographic appearance when compared to prior study. Assessment and Plan Assessment and Plan This 71-year-old man with a history of recurrent lower cavity deep venous thromboses; had been on chronic anticoagulation with warfarin. Currently he was on a Lovenox bridge awaiting removal of his infusion port which is scheduled for July 09, 2017 in [place]. 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 His disease had been in remission. About 2 weeks ago he developed hemoptysis and was evaluated by an ENT surgeon at the [facility] in [place]. Flexible laryngoscopy revealed an area of radiation related damage which is the likely source of bleeding. The patient was recommended conservative management. His symptoms resolved temporarily but then recurred yesterday and he presented to the emergency department. Since presented to the emergency department his hemoptysis has improved significantly. The oncology/hematology service and asked to see him to help manage anticoagulation leading up to his port removal. Recommendations: 1. Hemoptysis: Currently on a heparin drip. I recommend continuing the heparin drip and then discharging him home on intermediate dose Lovenox at 40 mg twice daily to prevent progression of his acute on chronic left lower extremity deep venous thrombosis. As a precaution I have ordered a noncontrast enhanced CT scan of the thorax to rule out any acute abnormal intrathoracic findings. 2. Chronic lower extremity deep venous thrombosis: Dates back at least to 2017. He has minimal symptoms of leg swelling when he stands likely related to venous insufficiency. Disposition: Should the CT scan of the thorax appear normal he is clear for discharge from hematologic standpoint provided his hemoptysis is reasonably well-controlled. He must follow up with his ENT surgeon in [place] for reevaluation of the oropharynx. Garrison Hayes MD Jul 07, 2017 11:26
[2017-07-07 12:06] VITALS: BP 154/77; PULSE 74; RESP 18; TEMP 97.1; O2SAT 95
[2017-07-07 14:08] LABS: HEMATOCRIT 40.5 % (39.0-51.0); HEMOGLOBIN 14.4 GM/DL (13.0-17.0)
[2017-07-07 14:26] VITALS: BP 133/81; PULSE 77; RESP 18; TEMP 97.3; O2SAT 93
--- NOTE | 2017-07-07 16:58 | EKG ---
Date Performed: 07/06/2017 Time Performed: 15:41:19 PTAGE: 71 years EKG: Sinus rhythm NONSPECIFIC ST & T-WAVE ABNORMALITY BORDERLINE ECG Since the PREVIOUS TRACING , no significant change noted PREVIOUS TRACIN08/18/2016 10.48 DOCTOR: Enmanuel Jacome Interpretating Date/Time 07/07/2017 16:53:33
[2017-07-07 17:48] LABS: HEMATOCRIT 40.6 % (39.0-51.0); HEMOGLOBIN 13.9 GM/DL (13.0-17.0)
[2017-07-07] MEDS ORDERED: ZOLPIDEM TARTRATE 5 MG TAB PO PRN (20:15)
[2017-07-07 21:29] VITALS: BP 136/82; PULSE 93; RESP 15; TEMP 97.8; O2SAT 88
[2017-07-08 01:38] VITALS: BP 159/91; PULSE 76; RESP 16; TEMP 98.2; O2SAT 96
[2017-07-08 04:31] VITALS: BP 121/73; PULSE 75; RESP 16; TEMP 98.3; O2SAT 96
[2017-07-08 07:48] VITALS: BP 117/81; PULSE 87; RESP 18; TEMP 97.4; O2SAT 97
[2017-07-08] MEDS: FOLIC ACID 1 MG TAB PO SCH (08:28)
[2017-07-08] MEDS: LEVOTHYROXINE SODIUM 75 MCG TAB PO SCH (08:29)
[2017-07-08] MEDS: SODIUM CHLORIDE 0.9% FLUSH 10 ML FLUSH IV FLUSH SCH (08:29)
[2017-07-08] MEDS: PANTOPRAZOLE SOD 40 MG DELAYED RELEASE TAB PO SCH (08:29)
[2017-07-08] MEDS: DOCUSATE SODIUM 50 MG/SENNA 8.6 MG TAB PO SCH (08:29)
[2017-07-08] MEDS: METOPROLOL TARTRATE 25 MG TAB PO SCH (08:29)
--- NOTE | 2017-07-08 08:51 | HHI.PR ---
Subjective Remarks in no acute distress. has some pain and swelling of the right arm. hemoptysis has almost resolved. Objective Vitals Vital Signs Date Time Temp Pulse Resp B/P (MAP) Pulse Ox O2 Delivery O2 Flow Rate FiO2 07/08/17 07:48 97.4 87 18 117/81 (93) 97 07/08/17 04:31 98.3 75 16 121/73 (89) 96 07/08/17 01:38 98.2 76 16 159/91 (113) 96 07/07/17 21:29 97.8 93 15 136/82 (100) 88 07/07/17 14:26 97.3 77 18 133/81 (98) 93 07/07/17 12:06 97.1 74 18 154/77 (102) 95 I/O 07/07/17 07/07/17 07/07/17 07/08/17 07/08/17 07/08/17 07:00 15:00 23:00 07:00 15:00 23:00 Intake Total 30 ml Balance 30 ml Intake Oral 30 ml # Voids 2 Result Diagram: 07/07/17 1648 07/06/17 1542 Imaging Last Impressions Lower Extremity Ultrasound 07/06/17 0000 Signed Impressions: Service Date/Time: Thursday, July 06, 2017 22:30 - CONCLUSION: Deep venous thrombosis likely a combination of acute on chronic given its sonographic appearance when compared to the prior study. Luis Chandler Jr., MD Chest X-Ray 07/06/17 0000 Signed Impressions: Service Date/Time: Thursday, July 06, 2017 14:37 - CONCLUSION: Mild cardiomegaly otherwise negative Ethan Snell MD FACR Objective Remarks GENERAL: This is a well-nourished, well-developed patient, in no apparent distress. CARDIOVASCULAR: Regular rate and regular rhythm without murmurs, gallops, or rubs. RESPIRATORY: Clear to auscultation. Breath sounds equal bilaterally. No wheezes , rales, or rhonchi. GASTROINTESTINAL: Abdomen soft, non-tender, nondistended. Normal, active bowel sounds MUSCULOSKELETAL: Extremities without clubbing, cyanosis, or edema. NEURO: Alert & Oriented x4 to person, place, time, situation. Moves all ext x4 Medications and IVs Inpatient Medications Bisacodyl (Dulcolax Supp) 10 mg DAILY PRN RECTAL SEVERE CONSITIPATION; Start at 18:00 Folic Acid (Folate) 1 mg DAILY PO Last administered on 07/08/17 08:28; Start 07/07/17 at 09:00 Heparin Sodium/ Dextrose 250 ml @ 17 mls/hr TITRATE PRN IV Coagulation Management Last administered on 07/07/17at 00:57; Start 07/07/17 at 00:30 Lactulose (Lactulose Liq) 30 ml DAILY PRN PO SEVERE CONSITIPATION; Start at 18:00 Levothyroxine Sodium (Synthroid) 75 mcg DAILY PO Last administered on 08:29; Start 07/07/17 at 09:00 Magnesium Hydroxide (Milk Of Magnesia Liq) 30 ml Q12H PRN PO Mild constipation ; Start 07/06/17 at 18:00 Metoprolol Tartrate (Lopressor) 25 mg BID PO Last administered on 07/08/17 08: 29; Start 07/06/17 at 21:00 Naloxone HCl (Narcan Inj) 0.4 mg UNSCH PRN IV PUSH SEE LABEL COMMENTS; Start at 18:00 Ondansetron HCl (Zofran Inj) 4 mg Q6H PRN IVP NAUSEA OR VOMITING; Start at 18:00 Pantoprazole Sodium (Protonix) 40 mg BID PO Last administered on 07/08/17 08: 29; Start 07/06/17 at 21:00 Senna/Docusate Sodium (Lupe-Colace) 1 tab BID PO Last administered on 20:57; Start 07/06/17 at 21:00 Sennosides (Senokot) 17.2 mg Q12H PRN PO Moderate constipation; Start 07/06/17 at 18:00 Sodium Chloride (NS Flush) 2 ml BID IV FLUSH Last administered on 07/08/17 08: 29; Start 07/06/17 at 21:00 Zolpidem Tartrate (Ambien) 5 mg HS PRN PO INSOMNIA Last administered on at 20:58; Start 07/07/17 at 20:15 A/P Problem List: (1) Hemoptysis ICD Code: R04.2 - Hemoptysis Status: Acute (2) Deep vein thrombosis (DVT) of left lower extremity ICD Code: I82.402 - Acute embolism and thrombosis of unspecified deep veins of left lower extremity Status: Acute Assessment and Plan Hemoptysis- has almsot resolved. -Chest x-ray shows mild cardiomegaly and is negative for acute cardiopulmonary process -ENT consult appreciated and recommended outpatient follow-up. -chest CT pending. Acute on chronic left lower extremity DVT History of mesenteric thrombosis and portal vein thrombosis -Patient indicated that he thought his DVT had resolved -Left lower extremity ultrasound was ordered and resulted as consistent with acute on chronic left lower extremity DVT when compared to prior ultrasound -Heparin drip started -hematology consult appreciated and recommended Lovenox 40 mg subq bid. swelling/ pain to the right arm - venous doppler of the right arm -continue pain control. Hypothyroidism and hypertension -Resumed home levothyroxine and metoprolol Gastroesophageal reflux disease -Resumed home PPI Discharge Planning dc home today - after CT and venous doppler resulted. f/u; pcp, ENT and hematology. Manuel Ying MD Jul 08, 2017 08:50
[2017-07-08] MEDS ORDERED: HYDR-3516 PO (08:52)
[2017-07-08] MEDS: ACETAMINOPHEN/HYDROcodone 325 MG/5 MG TAB PO PRN ×2 (08:55→15:01)
[2017-07-08 08:57] LABS: AUTOMATED NEUTROPHIL # 2.4 TH/MM3 (1.8-7.7); BASOPHIL % 0.6 % (0.0-2.0); EOSINOPHIL # 0.1 TH/MM3 (0-0.4); EOSINOPHIL % 2.5 % (0.0-4.0); HEMATOCRIT 39.6 % (39.0-51.0); HEMOGLOBIN 13.6 GM/DL (13.0-17.0); LYMPHOCYTE # 0.7 TH/MM3 (1.0-4.8); MEAN CELL VOLUME 95.2 FL (80.0-100.0); MEAN CORPUSCULAR HEMOGLOBIN 32.7 PG (27.0-34.0); MEAN CORPUSCULAR HGB CONC 34.4 % (32.0-36.0); MEAN PLATELET VOLUME 7.5 FL (7.0-11.0); MONO % 11.9 % (0.0-8.0); MONOCYTE # 0.4 TH/MM3 (0-0.9); PLATELET COUNT 154 TH/MM3 (150-450); RED BLOOD COUNT 4.16 MIL/MM3 (4.50-5.90); RED CELL DISTRIBUTION WIDTH 13.8 % (11.6-17.2); WHITE BLOOD COUNT 3.6 TH/MM3 (4.0-11.0)
[2017-07-08 09:19] LABS: BICARBONATE 22.8 MEQ/L (21.0-32.0); CREATININE 1.1 MG/DL (0.60-1.30)
--- NOTE | 2017-07-08 09:27 | RADRPT ---
EXAM DATE/TIME: 07/08/2017 09:09 [facility] COMPARISON: CT ABDOMEN & PELVIS W CONTRAST, May 24, 2015, 19:50. INDICATIONS : Coughing up blood for 3 days. RADIATION DOSE: 15.90 CTDIvol (mGy) MEDICAL HISTORY : Hypertension. Carcinoma, esophageal. Chemo, Rad tx SURGICAL HISTORY : Port, Peg tube, polyp in throat. ENCOUNTER: Initial ACUITY: 3 days PAIN SCALE: 0/10 LOCATION: chest TECHNIQUE: Volumetric scanning of the chest was performed. Using automated exposure control and adjustment of t he mA and/or kV according to patient size, radiation dose was kept as low as reasonably achievable to obtain optimal diagnostic quality images. DICOM format image data is available electronically for r eview and comparison. Follow-up recommendations for detected pulmonary nodules are based at a minimum on nodule size and pa tient risk factors according to Fleischner Society Guidelines. FINDINGS: LUNGS: Atelectatic changes are most prominent in the right perihilar and right upper lobe distribution. No c onfluent infiltrate. There are some atelectatic changes in the left base. PLEURAE: There is no pleural thickening or pleural effusion. MEDIASTINUM: The heart and great vessels demonstrate no acute abnormality. There is no mediastinal or hilar lymph adenopathy. Atherosclerotic calcification of the coronary arteries AXILLAE: Within normal limits. No lymphadenopathy. MUSCULOSKELETAL: Within normal limits for patient age. MISCELLANEOUS: The visualized upper abdominal organs demonstrate no acute abnormality. Multiple, stable hepatic syst em the largest laterally in the right lobe measuring 1.7 cm in diameter. Patient has a right IJ Infus e-a-Port catheter. CONCLUSION: 1. Mild bronchiectatic changes most prominent in the right perihilar distribution. Findings suggest p rior chronic infectious or inflammatory process. 2. No acute infiltrate or suspicious mass lesion. Mild atelectatic changes in the left base. 3. Stable multiple hepatic cysts. Jonh Isidro MD on July 08, 2017 at 9:20 Board Certified Radiologist. This report was verified electronically.
--- NOTE | 2017-07-08 10:21 | RADRPT ---
EXAM DATE/TIME: 07/08/2017 09:32 [facility] COMPARISON: No previous studies available for comparison. INDICATIONS : Right arm swelling. MEDICAL HISTORY : Hypertension. Hypothyroidism. Throat cancer. Chemotherapy. Radiation therapy. SURGICAL HISTORY : PEG tube placement and removal. Right chest port. Polyp removal. ENCOUNTER: Initial ACUITY: 1 day PAIN SCORE: 0/10 LOCATION: Right arm. FINDINGS: There is spontaneous flow documented in the brachial, basilic, cephalic, axillary, and subclavian vei ns. The vessels are compressible and augmentation response is documented. No filling defects are se en. The flow is phasic with respiration. Direction of flow in the jugular vein is caudal. CONCLUSION: Negative exam with no evidence of deep venous thrombosis Rosalio Khan MD on July 08, 2017 at 10:18 Board Certified Radiologist. This report was verified electronically.
[2017-07-08 11:30] VITALS: BP 124/82; PULSE 66; RESP 18; TEMP 97.7; O2SAT 95
[2017-07-08] MEDS ORDERED: ENOX40P SQ (11:59)
--- NOTE | 2017-07-08 12:18 | HHI.DCPOC ---
Discharge Care Plan Diagnosis: (1) Deep vein thrombosis (DVT) of left lower extremity (2) Hemoptysis Goals to Promote Your Health * To prevent worsening of your condition and complications * To maintain your health at the optimal level Directions to Meet Your Goals Take your medications as prescribed Follow your dietary instruction Follow activity as directed Keep your appointments as scheduled Take your immunizations and boosters as scheduled If your symptoms worsen call your PCP, if no PCP go to Urgent Care Center or Emergency Room Smoking is Dangerous to Your Health. Avoid second hand smoke Call the 24-hour hour crisis hotline for domestic abuse at Josefa Cash PA-C Jul 08, 2017 12:18 pm
[2017-07-08 14:54] VITALS: BP 120/73; PULSE 75; RESP 18; TEMP 97.7; O2SAT 94
[2017-07-08 16:07] VITALS: RESP 20
[2017-07-08] MEDS ORDERED: ENOXAPARIN SODIUM 40 MG/0.4 ML SYRINGE SQ SCH (21:00)
== END 2017-07-08 16:46 | disposition home or self-care (01) ==
LOC: NEPC 13:17 → NEDA 17:48 → NEPFCDU 19:17
PROVIDERS: ADMIT Internal Medicine; ATTEND Internal Medicine
DX: I82.502 Chronic embolism and thrombosis of unspecified deep veins of left lower extremity (principal); R04.2 Hemoptysis; E87.1 Hypo-osmolality and hyponatremia; E89.0 Postprocedural hypothyroidism; I11.9 Hypertensive heart disease without heart failure; K21.9 Gastro-esophageal reflux disease without esophagitis; Z79.01 Long term (current) use of anticoagulants; Z85.819 Personal history of malignant neoplasm of unspecified site of lip, oral cavity, and pharynx; Z85.89 Personal history of malignant neoplasm of other organs and systems; Z92.21 Personal history of antineoplastic chemotherapy; Z92.3 Personal history of irradiation; Z87.891 Personal history of nicotine dependence
CPT/HCPCS: 71046; 71250; 80048; 82272; 85014; 85018; 85025; 85610; 85730; 93005; 93971; 96365; 99285; G0378; J1644